=== PATIENT | female | born 1950 | race Caucasian/White ===

== ENCOUNTER 2020-05-04 06:24 | Day surgery (SDC) | payer OTHER ==
[2020-05-03 10:24] LABS: Absolute Lymphocytes (CBC) 1.8 K/uL (0.7-4.9); Basophils % 0.7 % (0-1.3); Lymphocytes % 26.9 % (15.3-44.8); MPV 9.2 fL (7.6-11.3); RBC Red Blood Cell Count 4.89 M/uL (3.86-4.86)
[2020-05-03 10:34] LABS: Protime INR 0.92
[2020-05-03 10:40] LABS: Potassium 3.6 mmol/L (3.5-5.1)
--- NOTE | 2020-05-03 10:41 | RAD REPORT ---
EXAM DESCRIPTION: RAD - Chest Pa And Lat (2 Views) - 05/03/2020 10:14 am CLINICAL HISTORY: preop Chest pain. COMPARISON: CHEST SINGLE VIEW dated 12/08/1999 FINDINGS: The lungs are clear. The heart is upper limit normal in size. No displaced fractures. Chol ecystectomy clips. Mild aortic atherosclerosis.
[2020-05-04] MEDS ORDERED: LIDOCAINE 1% 20 ML MDV ONE (06:49)
[2020-05-04] MEDS ORDERED: HEPA 1000U/500MLS 1,000 UNIT/500 ML BAG IV ONE (06:50)
[2020-05-04] MEDS ORDERED: NA CHLORIDE 0.9% 500 ML ONE (07:01)
[2020-05-04] MEDS ORDERED: MIDAZOLAM HCL 2 MG/2 ML INJ ONE (07:43)
[2020-05-04] MEDS ORDERED: FENTANYL CITR 100 MCG/2 ML ONE (07:44)
[2020-05-04] MEDS ORDERED: ATROPINE SULF 1 MG/10 ML SYR IV ONE (07:44)
[2020-05-04 08:49] VITALS: TEMP 97.4
[2020-05-04 13:09] VITALS: BP 148/52; O2SAT 98
--- NOTE | 2020-05-05 04:14 | OP ---
Date of Procedure: 05/04/2020 Surgeon: Suhail Esquivel MD Finish Specialist: Mushtaq Taylor. Procedure: Selective bilateral carotid angiogram. Indication: Cerebrovascular disease and positive carotid Doppler. Description Of Procedure: Ms. Nicole is a 69-year-old white woman. She was brought to the [facility] as an [facility]. She has a history of hypertension, dyslipidemia, and diabetes. She was prepped an d draped in the routine sterile fashion. Given Versed and fentanyl for sedation. A 6-Hebrew sheath was introduced in the right common femoral artery successfully using the Seldinger technique. A JR4 catheter was used to selectively cannulate the right common carotid, as well as the left common carot id artery. Right common carotid artery was pretty normal. Her right ICA was normal and so was the r ight CCA. On the left side, she had approximately 70% stenosis in the left internal carotid artery. Her left common carotid artery was normal. It was noted that her vertebral artery came off the aort ic arch that was selected and injected and it appeared to be normal. The patient tolerated the proce dure well. Complications: There were no complications. Estimated Blood Loss: 5 mL. Anesthesia: Total conscious sedation was 30 minutes. Final Diagnosis: Severe cerebrovascular disease. The CD will be reviewed by Dr. Arteaga for possibl e left carotid endarterectomy. Plan: The patient will be at bedrest for 2 hours after Angio-Seal of her right groin. She will go h ome today. We will make outpatient arrangements for her surgery with Dr. Arteaga. STEPHEN/ANU Voice ID: [id number] Report ID: [id number]
== END 2020-05-04 10:12 | disposition home or self-care (01) ==
LOC: CCL 06:24
DX: I65.22 Occlusion and stenosis of left carotid artery (principal); I10 Essential (primary) hypertension; E11.9 Type 2 diabetes mellitus without complications; E78.5 Hyperlipidemia, unspecified; Z20.828 Contact with and (suspected) exposure to other viral communicable diseases
CPT/HCPCS: 85025; 80048; 36415; 85610; 82947; 85730; 71046; 36222; U0002; C1893; C1760; J2250; J3010; J7040; J1644